=== PATIENT | male | born 1980 | race Caucasian/White ===

== ENCOUNTER 2020-10-09 14:37 | Day surgery (SDC) | payer OTHER ==
[2020-10-09] VITALS (8 sets, daily range): BP systolic 125–136; BP diastolic 63–89; PULSE 69–84; TEMP 97.3–97.5
[~2020-10-09] VITALS: Ht 205.7 cm; Wt 165.3 kg
[2020-10-09] MEDS ORDERED: HCTZ 25MG TAB25 MG PO (16:00)
[2020-10-09] MEDS ORDERED: LOPRESSOR100 MG PO (16:00)
[2020-10-09] MEDS ORDERED: GLUCOPHAGE1000 MG PO (16:01)
[2020-10-09] MEDS ORDERED: ADVIL200 MG PO (16:02)
--- NOTE | 2020-10-09 19:10 | NUR ---
Pt arrived to the floor via stretcher. Pt is alert and oriented. Pt stated that he has no pain at this time. Pt has been able tolerate ice and water. Pt has his call light within reach and has no other request at this time.
--- NOTE | 2020-10-09 19:50 | NUR ---
Dr. Stokes was contacted at this time to to verify that the pt was able to discharge once criteria was met. He did want pt to be discharged as long as he was able to meet criteria. Pt is currently eating in bed and has his call light within reach.
--- NOTE | 2020-10-09 20:00 | NUR ---
Pt stated that he has no pain at this time. Pt has been able to void. Pt has tolerated food without any nausea. Pt vitals are all within normal limits. He has his call light within reach.
--- NOTE | 2020-10-09 21:00 | NUR ---
Pt has been tolerating fluids. Pt has met all criteria. Pt IV was removed at this time form pt right hand. IV was all intact when removed, pt tolerated well. Call light within reach.
--- NOTE | 2020-10-09 21:48 | NUR ---
Pt voided again and this was recorded at this time. Pt has no pain and has no nausea from his regular diet. Pt was taken down by wheelchair and his picked him up at the Emergency entrance. Pt stated that he feels much better. Pt was taken down in the wheelchair by me Anneliese RN.
--- NOTE | 2020-10-09 21:50 | NUR ---
Pt was given all discharge paperwork and was educated on his procedure and all things that he needs to watch for and when to contact his doctor or come to the emergency room.
== END 2020-10-09 21:48 | disposition home or self-care (01) ==
LOC: SDCO 14:37 → SURG 19:29 → SDCO 21:48
DX: N21.0 Calculus in bladder (principal); I10 Essential (primary) hypertension; G47.33 Obstructive sleep apnea (adult) (pediatric); E11.9 Type 2 diabetes mellitus without complications; Z91.013 Allergy to seafood; Z88.1 Allergy status to other antibiotic agents; Z96.643 Presence of artificial hip joint, bilateral
CPT/HCPCS: OP; J1100; J1885; J2405; J2704; J3010; J7030